=== PATIENT | female | born 1985 | race African-American/Black ===

== ENCOUNTER 2023-04-30 18:25 | Emergency (ER) | payer OTHER ==
[~2023-04-30] VITALS: Ht 167.6 cm; Wt 75.0 kg
[2023-04-30 18:28] VITALS: O2SAT 99
[2023-04-30] MEDS ORDERED: BACITRACIN ZINC OINT UDPKT TOP ONE (19:30)
[2023-04-30] MEDS ORDERED: KETOROLAC 30MG/ML VIAL IM ONE (19:30)
[2023-04-30] MEDS ORDERED: CLIN-116 MT (20:58)
[2023-04-30] MEDS ORDERED: IBUP-2029 MT (20:58)
[2023-04-30] MEDS ORDERED: SULF1TAB48 MT (20:58)
[2023-04-30 21:06] VITALS: BP 128/84; PULSE 84; RESP 18; TEMP 98.6
[2023-04-30 22:04] LABS: HEPATITIS B SURFACE ANTIGEN NEGATIVE
[2023-05-04 04:08] LABS: HIV SCREEN 4G Non Reactive (Non Reactive)
== END 2023-04-30 21:06 | disposition home or self-care (01) ==
LOC: ER 18:25
DX: S61.253A Open bite of left middle finger without damage to nail, initial encounter (principal); Z88.0 Allergy status to penicillin; W50.3XXA Accidental bite by another person, initial encounter; Y93.89 Activity, other specified; Y92.89 Other specified places as the place of occurrence of the external cause; Y99.8 Other external cause status
CPT/HCPCS: 81025; 87340; 86803; 36415; 86705; 86709; 87389; 73140; 96372; 99284; J1885; Z7610